=== PATIENT | male | born 1990 | race Two or more races ===

== ENCOUNTER 2018-11-17 08:33 | Emergency (ER) | payer SELFPAY ==
[~2018-11-17] VITALS: Ht 170.2 cm; Wt 95.3 kg
[~2018-11-17 08:33] MED LIST: FAMO-63 PO; TRAM50TA PO
[2018-11-17] MEDS ORDERED: IV NORMAL SALINE 1000ML BAG 1,000 ML IV ONE (09:00)
[2018-11-17 09:06] LABS: BILIRUBIN,URINE NEGATIVE (NEG); CLARITY,URINE CLEAR; COLOR,URINE YELLOW; NITRITE,URINE NEGATIVE (NEG); PROTEIN,URINE NEGATIVE (NEG-TRACE); UROBILINOGEN,URINE 0.2 mg/dL (0.2 mg/dL)
[2018-11-17 09:17] LABS: BASO # 0.1 x10^3/uL (0.0-0.2); BASO % 1 % (0-3); EOS # 0.3 x10^3/uL (0.0-0.7); EOS % 3 % (0-3); HEMATOCRIT 48.5 % (39.0-53.0); LYMPH # 2.5 x10^3/uL (1.0-4.8); LYMPH % 26 % (24-48); MEAN CORPUSCULAR HEMOGLOBIN 31 pg (25-35); MEAN CORPUSCULAR HGB CONC 35 g/dL (31-37); MEAN CORPUSCULAR VOLUME 88 fL (79-100); MONO # 0.6 x10^3/uL (0.0-1.1); MONO % 6 % (0-9); NEUT # 6.2 x10^3uL (1.8-7.7); NEUT % 65 % (31-73); PLATELET COUNT 243 x10^3/uL (140-400); RED BLOOD COUNT 5.54 x10^6/uL (4.30-5.70); RED CELL DISTRIBUTION WIDTH 12.7 % (11.5-14.5); WHITE BLOOD COUNT 9.7 x10^3/uL (4.0-11.0)
[2018-11-17 09:18] LABS: CALCIUM 9.7 mg/dL (8.5-10.1); CREATININE 0.9 mg/dL (0.7-1.3); GFR 100.5; POTASSIUM 4.1 mmol/L (3.5-5.1)
[2018-11-17 09:24] LABS: ALBUMIN 4.5 g/dL (3.4-5.0); ALBUMIN/GLOBULIN RATIO 1.1 (1.0-1.7); TOTAL BILIRUBIN 0.7 mg/dL (0.2-1.0); TOTAL PROTEIN 8.5 g/dL (6.4-8.2)
[2018-11-17 09:31] LABS: SQUAMOUS EPITHELIAL CELL,UR FEW /LPF
--- NOTE | 2018-11-17 09:31 | PHYS DOC ---
Past Medical History Past Medical History: No Pertinent History Past Surgical History: No Surgical History Alcohol Use: Occasionally Drug Use: None Adult General Chief Complaint Chief Complaint: ABDOMINAL PAIN HPI HPI 28-year-old male presents to ER with complaints of intermittent abdominal pain for the past 5 days. Patient reports he has mid abdominal pain intermittently which radiates from side to side into his lower abdomen. Patient denies any nausea or vomiting, fever, urinary symptoms, or diarrhea episodes. Patient states he has concerns for constipation. Patient is denying any nbyu-kce-urkhhtl stool softeners. Patient reports he had small amount of stool this morning but was hard and had some discomfort during bowel movement. Pt reports regular appetite w/good fluid intake. Patient's is translating as patient speaks primarily [place]. Translation phone was offered for communication. Review of Systems Review of Systems Constitutional: Denies fever or chills [] Eyes: Denies change in visual acuity, redness, or eye pain [] HENT: Denies nasal congestion or sore throat [] Respiratory: Denies cough or shortness of breath [] Cardiovascular: Denies CP GI: Denies nausea, vomiting, bloody stools or diarrhea. Reports intermittent mid abd pain radiating across side to side abd into lower abd. Reports pain to be diffuse and currently denies any pain : Denies dysuria or hematuria [] Musculoskeletal: Denies back pain or joint pain [] Integument: Denies rash or skin lesions [] Neurologic: Denies headache, focal weakness or sensory changes [] Endocrine: Denies polyuria or polydipsia [] All other systems were reviewed and found to be within normal limits, except as documented in this note. Current Medications Current Medications Current Medications Medications (Trade) Dose Ordered Sig/Clarisse Start Time Stop Time Status Last Admin Dose Admin Sodium Chloride 1,000 ml @ 1,000 mls/hr 1X ONCE 11/17/18 09:00 11/17/18 09:59 DC 11/17/18 09:05 1,000 MLS/HR Allergies Allergies Allergies Coded Allergies Type Severity Reaction Last Updated Verified No Known Drug Allergies 12/22/15 No Physical Exam Physical Exam Constitutional: Well developed, well nourished, no acute distress, non-toxic appearance. [] HENT: Normocephalic, atraumatic, oropharynx moist, nose normal. [] Eyes: Pupils equal, conjunctiva normal, no discharge. [] Neck: Normal range of motion, supple Cardiovascular: Heart rate regular rhythm, no murmur [] Lungs & Thorax: Bilateral breath sounds clear to auscultation- resp. equal/nonlabored Abdomen: Bowel sounds normal, soft- no distention or rigidity, no tenderness, no masses, no pulsatile masses. [] Skin: Warm, dry, no erythema, no rash. [] Back: No tenderness, no CVA tenderness. [] Extremities: No tenderness, no cyanosis, no clubbing, ROM intact, no edema. [] Neurologic: Alert and oriented X 3, normal motor function, normal sensory function, no focal deficits noted. [] Psychologic: Affect normal, judgement normal, mood normal. [] Current Patient Data Vital Signs Vital Signs Date Time Temp Pulse Resp B/P (MAP) Pulse Ox O2 Delivery O2 Flow Rate FiO2 11/17/18 10:38 92 16 122/72 (89) 99 Room Air 11/17/18 08:49 98.5 98.5 Lab Values Laboratory Tests Test 11/17/18 08:50 White Blood Count 9.7 x10^3/uL (4.0-11.0) Red Blood Count 5.54 x10^6/uL (4.30-5.70) Hemoglobin 17.0 g/dL (13.0-17.5) Hematocrit 48.5 % (39.0-53.0) Mean Corpuscular Volume 88 fL (79-100) Mean Corpuscular Hemoglobin 31 pg (25-35) Mean Corpuscular Hemoglobin Concent 35 g/dL (31-37) Red Cell Distribution Width 12.7 % (11.5-14.5) Platelet Count 243 x10^3/uL (140-400) Neutrophils (%) (Auto) 65 % (31-73) Lymphocytes (%) (Auto) 26 % (24-48) Monocytes (%) (Auto) 6 % (0-9) Eosinophils (%) (Auto) 3 % (0-3) Basophils (%) (Auto) 1 % (0-3) Neutrophils # (Auto) 6.2 x10^3uL (1.8-7.7) Lymphocytes # (Auto) 2.5 x10^3/uL (1.0-4.8) Monocytes # (Auto) 0.6 x10^3/uL (0.0-1.1) Eosinophils # (Auto) 0.3 x10^3/uL (0.0-0.7) Basophils # (Auto) 0.1 x10^3/uL (0.0-0.2) Urine Collection Type Void Urine Color Yellow Urine Clarity Clear Urine pH 7.0 Urine Specific [place] 1.020 Urine Protein Negative mg/dL (NEG-TRACE) Urine Glucose (UA) Negative mg/dL (NEG) Urine Ketones (Stick) Negative mg/dL (NEG) Urine Blood Negative (NEG) Urine Nitrite Negative (NEG) Urine Bilirubin Negative (NEG) Urine Urobilinogen Dipstick 0.2 mg/dL (0.2 mg/dL) Urine Leukocyte Esterase Moderate (NEG) Urine RBC Occ /HPF (0-2) Urine WBC 5-10 /HPF (0-4) Urine Squamous Epithelial Cells Few /LPF Urine Bacteria Moderate /HPF (0-FEW) Urine Mucus Marked /LPF Sodium Level 140 mmol/L (136-145) Potassium Level 4.1 mmol/L (3.5-5.1) Chloride Level 101 mmol/L (98-107) Carbon Dioxide Level 27 mmol/L (21-32) Anion Gap 12 (6-14) Blood Urea Nitrogen 13 mg/dL (8-26) Creatinine 0.9 mg/dL (0.7-1.3) Estimated GFR (Cockcroft-Gault) 100.5 BUN/Creatinine Ratio 14 (6-20) Glucose Level 106 mg/dL (70-99) H Calcium Level 9.7 mg/dL (8.5-10.1) Total Bilirubin 0.7 mg/dL (0.2-1.0) Aspartate Amino Transferase (AST) 22 U/L (15-37) Alanine Aminotransferase (ALT) 77 U/L (16-63) H Alkaline Phosphatase 69 U/L (46-116) Total Protein 8.5 g/dL (6.4-8.2) H Albumin 4.5 g/dL (3.4-5.0) Albumin/Globulin Ratio 1.1 (1.0-1.7) Lipase 60 U/L (73-393) L Laboratory Tests 11/17/18 08:50 Laboratory Tests 11/17/18 08:50 EKG EKG [] Radiology/Procedures Radiology/Procedures PROCEDURE: ACUTE ABDOMEN SERIES EXAM: Abdomen acute complete. HISTORY: Pain. COMPARISON: None. FINDINGS: A frontal view of the chest and frontal upright and supine views of the abdomen are obtained. There is no infiltrate, pleural effusion or pneumothorax. The heart is normal in size. There is a small amount of gas and stool within the colon. There is no evidence of bowel obstruction. There is no free air. IMPRESSION: 1. No acute pulmonary finding. 2. Nonobstructive bowel gas pattern. Electronically signed by: Greer Brody MD (11/17/2018 9:56 AM) [facility] DICTATED and SIGNED BY: GREER BRODY MD DATE: 11/17/18 0956 Course & Med Decision Making Course & Med Decision Making Pertinent Labs and Imaging studies reviewed. (See chart for details) 1020: Pt was evaluated in the ER for complaints of diffuse abdominal pain. Patie nt had denied any pain during his exam. Test results were discussed. Patient had x-ray obtained showing nonobstructive gas pattern with moderate stool. Discussed constipation and advised patient on iuof-dxs-tnauona stool softeners daily as well as increase fluid intake. Advised on follow-up with primary care physician and or her GI doctor if symptoms persist or with concerns. Patient is in no distress during discharge discussion HR 80s. Education provided on signs and symptoms to return to ER for will provide referral information for GI and community clinic resource sheet. Discuss urinalysis with moderate leukocytes- patient initially denied any urinary symptoms however at this time states he has been having lower groin pain with urination so will describe Keflex prescription with discharge paperwork. Pt advised on Tylenol and/or ibuprofen as needed for pain. Dragon Disclaimer Dragon Disclaimer This electronic medical record was generated, in whole or in part, using a voice recognition dictation system. Departure Departure Impression: Primary Impression: Abdominal pain Additional Impressions: Constipation Urinary tract infection Disposition: HOME, SELF-CARE Condition: STABLE Referrals: UNKNOWN PCP NAME (PCP) CRISTINE JACOBS MD Patient Instructions: Abdominal Pain, Constipation, Adult, Urinary Tract Infection Additional Instructions: Drink plenty of fluids. Tylenol and/or Ibuprofen as needed for pain as directed on container. With concerns of constipation- you can try over the counter stool softeners such as Miralax as directed on container. If symptoms persist follow-up with your primary doctor and/or a gastrointestinal (GI) doctor for re-evaluation and further care. Scripts Cephalexin (KEFLEX) 500 Mg Capsule 1 CAP PO BID, #14 CAP 0 Refills Prov: SALMA WHIPPLE APRN 11/17/18 Problem Qualifiers SALMA WHIPPLE APRN November 17, 2018 09:31
[2018-11-17 09:33] LABS: BACTERIA,URINE MODERATE /HPF (0-FEW); RBC,URINE OCC /HPF (0-2)
--- NOTE | 2018-11-17 09:59 | RAD ---
EXAM: Abdomen acute complete. HISTORY: Pain. COMPARISON: None. FINDINGS: A frontal view of the chest and frontal upright and supine views of the abdomen are obtained. There is no infiltrate, pleural effusion or pneumothorax. The heart is normal in size. There is a small amount of gas and stool within the colon. There is no evidence of bowel obstruction. There is no free air. IMPRESSION: 1. No acute pulmonary finding. 2. Nonobstructive bowel gas pattern. Electronically signed by: Greer Brody MD (11/17/2018 9:56 AM) [facility]
[2018-11-17] MEDS ORDERED: CEPH-264 PO (10:27)
[2018-11-17 10:38] VITALS: BP 122/72
== END 2018-11-17 10:40 | disposition home or self-care (01) ==
LOC: ER 08:33
DX: N39.0 Urinary tract infection, site not specified (principal); K59.00 Constipation, unspecified
CPT/HCPCS: 36415; 74022; 80053; 81001; 83690; 85025; 87086; 99285; J7030

== ENCOUNTER 2018-11-22 13:58 | Emergency (ER) | payer SELFPAY ==
[~2018-11-22] VITALS: Ht 167.6 cm; Wt 95.3 kg
[~2018-11-22 13:58] MED LIST changes: +CEPH-264 PO
--- NOTE | 2018-11-22 14:28 | EKG ---
[facility] [address] [place] [address] Test Date: 2018-11-22 Test Time: 14:12:56 Pat Name: MU MURGUIA Department: Room: Gender: M Statistics Teacher: : 1990 Requested By: TOBI AREVALO Order Number: [id number] Reading MD: Luis Moss Measurements Intervals [place] Rate: 86 P: 56 VT: 150 QRS: 10 QRSD: 90 T: 34 QT: 348 QTc: 419 Interpretive Statements SINUS RHYTHM NORMAL ECG Electronically Signed On 12-20-2018 13:13:39 CDT by Luis Moss
--- NOTE | 2018-11-22 14:52 | RAD ---
CHEST PA LATERAL History: Left sided chest pain since Monday. Comparison with May 10, 2016 image without report. The heart size is not enlarged. No evidence of pneumothorax, pleural effusion or consolidating infiltrate. Regional skeleton appears intact. IMPRESSION: No evidence of consolidating infiltrate. Electronically signed by: Nima Jones MD (11/22/2018 2:50 PM) [facility]
--- NOTE | 2018-11-22 15:19 | PHYS DOC ---
Past Medical History Past Medical History: Other Additional Past Medical Histor: COSTOCONDRITIS Past Surgical History: No Surgical History Alcohol Use: Occasionally Drug Use: None Adult General Chief Complaint Chief Complaint: CHEST WALL PAIN HPI HPI Patient is a 28 year old male presents to ER today for evaluation of chest pain that he been experiencing off and on for 6 months. The pain is sharp in nature, lasts for about 30 seconds each. Patient said the pain get worse with cough or taking a deep breast. Patient denies any history of heart problem, no diabetic, no htn, no cholesterol problem. NO recent travel or operation. Review of Systems Review of Systems Constitutional: Denies fever or chills [] Eyes: Denies change in visual acuity, redness, or eye pain [] HENT: Denies nasal congestion or sore throat [] Respiratory: Denies cough or shortness of breath [] Cardiovascular: No additional information not addressed in HPI [] GI: Denies abdominal pain, nausea, vomiting, bloody stools or diarrhea [] : Denies dysuria or hematuria [] Musculoskeletal: Denies back pain or joint pain [] Integument: Denies rash or skin lesions [] Neurologic: Denies headache, focal weakness or sensory changes [] Endocrine: Denies polyuria or polydipsia [] All other systems were reviewed and found to be within normal limits, except as documented in this note. Allergies Allergies Allergies Coded Allergies Type Severity Reaction Last Updated Verified No Known Drug Allergies 12/22/15 No Physical Exam Physical Exam Constitutional: Well developed, well nourished, no acute distress, non-toxic appearance. [] HENT: Normocephalic, atraumatic, bilateral external ears normal, oropharynx moist, no oral exudates, nose normal. [] Eyes: PERRLA, EOMI, conjunctiva normal, no discharge. [] Neck: Normal range of motion, no tenderness, supple, no stridor. [] Cardiovascular:Heart rate regular rhythm, no murmur [] Lungs & Thorax: Bilateral breath sounds clear to auscultation [] Abdomen: Bowel sounds normal, soft, no tenderness, no masses, no pulsatile masses. [] Skin: Warm, dry, no erythema, no rash. [] Back: No tenderness, no CVA tenderness. [] Extremities: No tenderness, no cyanosis, no clubbing, ROM intact, no edema. [] Neurologic: Alert and oriented X 3, normal motor function, normal sensory function, no focal deficits noted. [] Psychologic: Affect normal, judgement normal, mood normal. [] Current Patient Data Vital Signs Vital Signs Date Time Temp Pulse Resp B/P (MAP) Pulse Ox O2 Delivery O2 Flow Rate FiO2 11/22/18 15:38 72 17 119/70 (86) 97 Room Air 11/22/18 14:12 98.9 98.9 EKG EKG EKG WAS READ BY THIS PHYSICIAN AT 1415, SINUS RHYTHM, NO STEMI, RATE OF 87 BPM. Radiology/Procedures Radiology/Procedures [][facility] [address] [place] [address] IMAGING REPORT Signed PATIENT: MU MURGUIA ACCOUNT: [id number] : 1990 LOCATION: ER AGE: 28 SEX: M EXAM STATUS: PRE ER ORD. PHYSICIAN: TOBI AREVALO DO REASON: LEFT SIDED INTERMITTENT CHEST PAIN SINCE MONDAY PROCEDURE: CHEST PA & LATERAL CHEST PA LATERAL History: Left sided chest pain since Monday. Comparison with May 10, 2016 image without report. The heart size is not enlarged. No evidence of pneumothorax, pleural effusion or consolidating infiltrate. Regional skeleton appears intact. IMPRESSION: No evidence of consolidating infiltrate. Electronically signed by: Vandana Jones MD (11/22/2018 2:50 PM) [facility] DICTATED and SIGNED BY: VANDANA JONES MD DATE: 11/22/18 6788 Course & Med Decision Making Course & Med Decision Making Pertinent Labs and Imaging studies reviewed. (See chart for details) [] Dragon Disclaimer Dragon Disclaimer This electronic medical record was generated, in whole or in part, using a voice recognition dictation system. Departure Departure Impression: Primary Impression: Chest wall pain Disposition: 01 HOME, SELF-CARE Condition: STABLE Referrals: UNKNOWN PCP NAME (PCP) FOLLOW UP WITH YOUR DOCTOR NEEDED NEXT WEEK Patient Instructions: Chest Wall Pain Scripts Ibuprofen (IBUPROFEN) 800 Mg Tablet 800 MG PO PRN Q8HRS PRN for INFLAMMATION, #30 TAB Prov: TOBI AREVALO DO 11/22/18 TOBI AREVALO DO November 22, 2018 15:19
[2018-11-22] MEDS ORDERED: IBUP-1060 PO (15:34)
[2018-11-22 15:38] VITALS: BP 119/70
== END 2018-11-22 15:44 | disposition home or self-care (01) ==
LOC: ER 13:58
DX: R07.89 Other chest pain (principal); R05 Cough
CPT/HCPCS: 71046; 93005; 99284